=== PATIENT | female | born 1950 | race Caucasian/White ===

== ENCOUNTER 2017-02-16 13:23 | Inpatient (IN) | payer MEDICARE ==
[2017-02-16] MEDS ORDERED: NS 0.9% 1000 ML* 2,000 ML IV ONE (16:23)
[2017-02-16 16:59] LABS: Hematocrit 42 % (35-47); Hemoglobin 14.5 g/dl (12.0-16.0); Mean Corpuscular HGB Conc 35 g/dl (31-36); Mean Corpuscular Hemoglobin 30 pg (27-31); Mean Corpuscular Volume 88 fL (80-97); Mean Platelet Volume 9 um3 (7.4-10.4); Red Blood Count 4.79 10^6/ul (4.0-5.4); Red Cell Distribution Width 13 % (10.5-15)
[2017-02-16 17:04] LABS: Urine Bacteria Absent (Absent); Urine Bilirubin Negative (Negative); Urine Glucose Negative (Negative); Urine Nitrite Negative (Negative)
[2017-02-16 17:16] LABS: Albumin 4.3 g/dL (3.2-5.2); BUN/Creatinine Ratio 14.9 (8-20); C Reactive Protein 91.19 mg/L (< 5.00); Calcium 10.2 mg/dL (8.6-10.3); EGFR African American 113.3 (>60); EGFR Non-African American 88.1 (>60); Globulin 3.4 g/dL (2-4); Potassium 3.6 mmol/L (3.5-5.0); Total Bilirubin 0.7 mg/dL (0.2-1.0); Total Protein 7.7 g/dL (6.4-8.9)
[2017-02-16] MEDS ORDERED: Iohexol 300* (CONTRAST) 10 ML SDV IV ONE (18:25)
--- NOTE | 2017-02-16 18:56 | ED ---
Juanis Yang Thomas, scribed for Marlon Sherwood MD on 02/16/17 at 1612 . Abdominal Pain/Female - HPI Summary HPI Summary: The pt is a 66 y/o F presenting to the ED c/o constant lower abd pain that began suddenly 10 days ago. It is most painful on her LLQ. It has gotten progressively worse. Intermittently, the pain worsens and is described as sharp. The pt rates the pain 8/10. The pain is aggravated by urination and alleviated by heat. 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 Pt additionally c/o decreased appetite secondary to the pain, bloating, chills, and night sweats. Pt denies N/V/D, bloody stool, black tarry stools, dysuria, hematuria, CP, SOB, fever, cough, wheezing, palpitations, back pain, decreased flatus, belching, pedal edema, and dark urine. She takes progesterone cream, osteoprime, and flax seed oil. PMHx: ovarian cysts, UTI, osteoporosis, internal bleeding after natural delivery. PSHx: tubal ligation, hysterectomy, R ovary removal, appendectomy. SHx: former smoking, occasional alcohol use, no illicit drug use. She denies recent travels. She is not on a blood thinner. - History of Current Complaint Chief Complaint: EDAbdPain Stated Complaint: LOWER ABD PAIN Time Seen by Provider: 02/16/17 16:04 Hx Obtained From: Patient Onset/Duration: Sudden Onset, Lasting Days - 10, Still Present, Worse Since - progressively Timing: Constant Pain Intensity: 8 Pain Scale Used: 0-10 Numeric Location: Other - Lower but worse in LLQ Character: Other: - When it intermittently worsenes, it is sharp Aggravating Factor(s): Nothing Alleviating Factor(s): Nothing Associated Signs and Symptoms: Positive: Diaphoresis - night, Decreased Appetite - secondary to the pain, Other: - POS: chills, bloating; NEG: black tarry stool, dysuria, hematuria, SOB, wheezing, palpitations, decreased flatus, belching, pedal edema, dark urine. Negative: Fever, Cough, Chest Pain, Back Pain, Blood in Stool, Nausea, Vomiting, Diarrhea Allergies/Adverse Reactions: Allergies Allergy/AdvReac Type Severity Reaction Status Date / Time No Known Allergies Allergy Verified 02/16/17 13:34 PMH/Surg Hx/FS Hx/Imm Hx Previously Healthy: No Endocrine/Hematology History: Denies: Hx Diabetes, Hx Thyroid Disease Cardiovascular History: Denies: Hx Hypertension, Hx Pacemaker/ICD Respiratory History: Reports: Other Respiratory Problems/Disorders - HX PNEUMONIA Denies: Hx Asthma, Hx Chronic Obstructive Pulmonary Disease (COPD) GI History: Denies: Hx Ulcer History: Reports: Other Problems/Disorders - Hx ovarian cysts Denies: Hx Renal Disease Musculoskeletal History: Reports: Hx Osteoporosis - ? OSTEO, SPONTANIOUS RIB FX' S Sensory History: Denies: Hx Hearing Aid Psychiatric History: Denies: Hx Panic Disorder - Cancer History Hx Chemotherapy: No Hx Radiation Therapy: No - Surgical History Surgery Procedure, Year, and Place: 2012 REPAIR LEFT HAND FRACTURE. 1986 hysterectomy. 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 Negative: Fever Negative: Palpitations, Chest Pain Positive: Other - POS: wheezing. Negative: Shortness Of Breath, Cough Positive: Abdominal Pain - lower, onset 10 days ago, Other - POS: decreased appetite secondary to the pain; NEG: black tarry stool, bloody stool, decreased flatus, belching. Negative: Vomiting, Diarrhea, Nausea Negative: dysuria, hematuria - black tarry stools, bloody stools, other - NEG: dark urine Negative: Edema - pedal, Other - NEG: back pain All Other Systems Reviewed And Are Negative: Yes Physical Exam - Summary Physical Exam Summary: The patient is well-nourished in no acute distress and in no acute pain. The skin is warm and dry and skin color reflects adequate perfusion. HEENT: The head is normocephalic and atraumatic. The pupils are equal and reactive. The conjunctivae are clear and without drainage. Nares are patent and without drainage. Mouth reveals moist mucous membranes and the throat is without erythema and exudate. The external ears are intact. The ear canals are patent and without drainage. The tympanic membranes are intact. Neck is supple with full range of motion and non-tender. There are no carotid bruits. There is no neck vein distension. Respiratory: Chest is non-tender. Lungs are clear to auscultation and breath sounds are symmetrical and equal. Cardiovascular: Heart is regular rate and rhythm. There is no murmur or rub auscultated. There is no peripheral edema and pulses are symmetrical and equal. Abdomen: The abdomen is soft. There is tenderness to her LLQ. There is no CVA tenderness. There are hyperactive bowel sounds heard in all four quadrants and there is no organomegaly palpated. Musculoskeletal: There is no back pain noted. Extremities are non-tender with full range of motion. There is good capillary refill. There is no peripheral edema or calf tenderness elicited. Neurological: Patient is alert and oriented to person, place and time. The patient has symmetrical motor strength in all four extremities. Cranial nerves are grossly intact. Deep tendon reflexes are symmetrical and equal in all four extremities. Psychiatric: The patient has an appropriate affect and does not exhibit any anxiety or depression. Triage Information Reviewed: Yes Vital Signs On Initial Exam: Initial Vitals Temp Pulse Resp BP Pulse Ox 98.2 F 82 16 143/68 100 02/16/17 13:30 02/16/17 13:30 02/16/17 13:30 02/16/17 13:30 02/16/17 13:30 Vital Signs Reviewed: Yes - [place] Coma Scale Coma Scale Total: 15 Diagnostics - Vital Signs Vital Signs Temp Pulse Resp BP Pulse Ox 02/16/17 15:00 82 126/54 100 02/16/17 14:55 98.8 F 84 18 147/71 100 02/16/17 14:54 147/71 02/16/17 13:30 98.2 F 82 16 143/68 100 - Laboratory Lab Results: Lab Results 02/16/17 02/16/17 02/16/17 Range/Units 16:47 16:47 16:47 WBC 8.0 (3.5-10.8) 10^3/ul RBC 4.79 (4.0-5.4) 10^6/ul Hgb 14.5 (12.0-16.0) g/dl Hct 42 (35-47) % MCV 88 (80-97) fL MCH 30 (27-31) pg MCHC 35 (31-36) g/dl RDW 13 (10.5-15) % Plt Count 243 (150-450) 10^3/ul MPV 9 (7.4-10.4) um3 Neut % (Auto) 70.1 (38-83) % Lymph % (Auto) 19.7 L (25-47) % Stanley % (Auto) 7.6 (1-9) % Eos % (Auto) 2.0 (0-6) % Baso % (Auto) 0.6 (0-2) % Absolute Neuts (auto) 5.6 (1.5-7.7) 10^3/ul Absolute Lymphs (auto) 1.6 (1.0-4.8) 10^3/ul Absolute Monos (auto) 0.6 (0-0.8) 10^3/ul Absolute Eos (auto) 0.2 (0-0.6) 10^3/ul Absolute Basos (auto) 0 (0-0.2) 10^3/ul Absolute Nucleated RBC 0 10^3/ul Nucleated RBC % 0 Sodium 137 (133-145) mmol/L Potassium 3.6 (3.5-5.0) mmol/L Chloride 101 (101-111) mmol/L Carbon Dioxide 28 (22-32) mmol/L Anion Gap 8 (2-11) mmol/L BUN 10 (6-24) mg/dL Creatinine 0.67 (0.51-0.95) mg/dL Est GFR ( Amer) 113.3 (>60) Est GFR (Non-Af Amer) 88.1 (>60) BUN/Creatinine Ratio 14.9 (8-20) Glucose 90 (70-100) mg/dL Lactic Acid 0.6 (0.5-2.0) mmol/L Calcium 10.2 (8.6-10.3) mg/dL Total Bilirubin 0.70 (0.2-1.0) mg/dL AST 18 (13-39) U/L ALT 28 (7-52) U/L Alkaline Phosphatase 89 (34-104) U/L C-Reactive Protein 91.19 H (< 5.00) mg/L Total Protein 7.7 (6.4-8.9) g/dL Albumin 4.3 (3.2-5.2) g/dL Globulin 3.4 (2-4) g/dL Albumin/Globulin Ratio 1.3 (1-3) Amylase 51 (29-103) U/L Lipase 28 (11.0-82.0) U/L Urine Color Urine Appearance Urine pH (5-9) Ur Specific [place] (1.010-1.030) Urine Protein (Negative) Urine Ketones (Negative) Urine Blood (Negative) Urine Nitrate (Negative) Urine Bilirubin (Negative) Urine Urobilinogen (Negative) Ur Leukocyte Esterase (Negative) Urine WBC (Auto) (Absent) Urine RBC (Auto) (Absent) Urine Bacteria (Absent) Urine Glucose (Negative) 02/16/17 Range/Units 16:47 WBC (3.5-10.8) 10^3/ul RBC (4.0-5.4) 10^6/ul Hgb (12.0-16.0) g/dl Hct (35-47) % MCV (80-97) fL MCH (27-31) pg MCHC (31-36) g/dl RDW (10.5-15) % Plt Count (150-450) 10^3/ul MPV (7.4-10.4) um3 Neut % (Auto) (38-83) % Lymph % (Auto) (25-47) % Stanley % (Auto) (1-9) % Eos % (Auto) (0-6) % Baso % (Auto) (0-2) % Absolute Neuts (auto) (1.5-7.7) 10^3/ul Absolute Lymphs (auto) (1.0-4.8) 10^3/ul Absolute Monos (auto) (0-0.8) 10^3/ul Absolute Eos (auto) (0-0.6) 10^3/ul Absolute Basos (auto) (0-0.2) 10^3/ul Absolute Nucleated RBC 10^3/ul Nucleated RBC % Sodium (133-145) mmol/L Potassium (3.5-5.0) mmol/L Chloride (101-111) mmol/L Carbon Dioxide (22-32) mmol/L Anion Gap (2-11) mmol/L BUN (6-24) mg/dL Creatinine (0.51-0.95) mg/dL Est GFR ( Amer) (>60) Est GFR (Non-Af Amer) (>60) BUN/Creatinine Ratio (8-20) Glucose (70-100) mg/dL Lactic Acid (0.5-2.0) mmol/L Calcium (8.6-10.3) mg/dL Total Bilirubin (0.2-1.0) mg/dL AST (13-39) U/L ALT (7-52) U/L Alkaline Phosphatase (34-104) U/L C-Reactive Protein (< 5.00) mg/L Total Protein (6.4-8.9) g/dL Albumin (3.2-5.2) g/dL Globulin (2-4) g/dL Albumin/Globulin Ratio (1-3) Amylase (29-103) U/L Lipase (11.0-82.0) U/L Urine Color Yellow Urine Appearance Clear Urine pH 7.0 (5-9) Ur Specific [place] 1.006 L (1.010-1.030) Urine Protein Negative (Negative) Urine Ketones Negative (Negative) Urine Blood Negative (Negative) Urine Nitrate Negative (Negative) Urine Bilirubin Negative (Negative) Urine Urobilinogen Negative (Negative) Ur Leukocyte Esterase 2+ H (Negative) Urine WBC (Auto) 2+(11-20/hpf) H (Absent) Urine RBC (Auto) Trace(0-2/hpf) (Absent) Urine Bacteria Absent (Absent) Urine Glucose Negative (Negative) Result Diagrams: 02/16/17 16:47 02/16/17 16:47 Lab Statement: Any lab studies that have been ordered have been reviewed, and results considered in the medical decision making process. Abdominal Pain Fem Course/Dx - Diagnoses Differential Diagnosis: Positive: Bowel Obstruction, Diverticulitis, Urinary Tract Infection, Other - collitis Provider Diagnoses: (Ruled Out): Chest pain Discharge - Discharge Plan Condition: Fair Disposition: OTHER Discharge Disposition Comment: The patient is signed out from Dr. Sherwood to Dr. Hand. The documentation as recorded by the Juanis hooks Thomas accurately reflects the service I personally performed and the decisions made by Presley aquino Drew, MD.
--- NOTE | 2017-02-16 19:21 | RAD ---
Indication: Left lower quadrant pain. Contrast: Administered 65.0 ml of OMNIPAQUE 300 mg/ml CT of the abdomen and pelvis was performed after oral and IV contrast administration. Coronal and sagittal images were obtained. Lung bases demonstrate no pleural fluid, nodules or masses. Heart size without evidence of pericardial effusion. The liver is normal in size. There is a tiny low density lesion in the anterior segment of the right lobe of liver measuring 5 mm. This is nonspecific and may represent a cyst. No other focal lesions or intrahepatic ductal dilatation is noted. The spleen is normal in size. The pancreas demonstrates no mass or pancreatic duct dilatation. The common duct is not dilated. The gallbladder demonstrates no gallstones, pericholecystic fluid or wall thickening. The common duct is not dilated. No adrenal lesions are noted. The kidneys demonstrate symmetric nephrograms without evidence of lesions. No dilated loops of bowel are noted. The colon is filled with stool. CT of the pelvis demonstrates a long segment of wall thickening of the sigmoid colon with fluid in the wall of the sigmoid colon. This is likely representing diverticulitis. Structures in the sidewall of the pelvis with low-density appear well-defined. This measures approximately 4.1 x 2.0 cm with several low density lesions noted. A similar lesion was identified on a previous exam of 2014 and this likely represents the left ovary. The patient is status post hysterectomy. The urinary bladder is unremarkable. The right ovary is not visualized. IMPRESSION: THERE IS DIVERTICULITIS WITH OVOID FLUID COLLECTION IN THE LEFT LATERAL WALL OF THE SIGMOID COLON LIKELY REPRESENTING A PERIDIVERTICULAR ABSCESS. IN THE LEFT PELVIC SIDEWALL IS A MASS WITH LOW DENSITY AREAS LIKELY REPRESENTING A PROMINENT LEFT OVARY THIS WAS PRESENT ON PRIOR EXAM OF 2014.
[2017-02-16] MEDS ORDERED: fentaNYL* 50 MCG/ML 2 ML VIAL (100 MCG VIAL) IV SLOW PU ONE (19:50)
--- NOTE | 2017-02-16 19:53 | ED ---
Juanis Yang Thomas, scribed for Kyleigh Hand MD on 02/16/17 at 1952 . Progress - Progress Note Progress Note: The patient is a sign out from Dr. Sherwood to Dr. Hand. CT Abd/Pel reveals THERE IS DIVERTICULITIS WITH OVOID FLUID COLLECTION IN THE LEFT LATERAL WALL OF THE SIGMOID COLON LIKELY REPRESENTING A PERIDIVERTICULAR ABSCESS. IN THE LEFT PELVIC SIDEWALL IS A MASS WITH LOW DENSITY AREAS LIKELY REPRESENTING A PROMINENT LEFT OVARY THIS WAS PRESENT ON PRIOR EXAM OF 2014. I made the patient aware of her CT results. She is willing to be admitted to [facility] [place]. I consulted with benjamín Fragoso, who admits the patient at 19:48. Course/Dx - Diagnoses Provider Diagnoses: Diverticulitis of intestine with abscess The documentation as recorded by the Juanis hooks Thomas accurately reflects the service I personally performed and the decisions made by me, Kyleigh Hand MD.
[2017-02-16] MEDS ORDERED: Acetaminophen TAB* 325 MG PO PRN (21:16)
[2017-02-16] MEDS: NS 0.9% 1000 ML* 1,000 ML IV SCH (21:27)
[2017-02-16] MEDS: Ciprofloxacin 400MG IVPREMIX(* 400 MG/200 ML BAG IVPB SCH (23:53)
[2017-02-16] MEDS: Heparin VIAL(*) 5000 UNITS/ML VIAL (FIVE THOUSAND) SUBCUT SCH (23:58)
[2017-02-17] MEDS: metroNIDAZOLE IV 500 MG/100ML* 500 MG/100 ML BAG IVPB SCH ×4 (01:10→17:51)
[2017-02-17] MEDS: NS 0.9% 1000 ML* 1,000 ML IV SCH ×2 (02:12→16:41)
--- NOTE | 2017-02-17 02:40 | HP ---
CC: FREDY Gonzalez, [facility] * HISTORY AND PHYSICAL: DATE OF ADMISSION: 02/16/17 CHIEF COMPLAINT: Abdominal pain. HISTORY OF PRESENT ILLNESS: The patient is a 66-year-old woman who said about a week ago, she started having pain in her lower abdomen both on the right and left side. She actually thought it was the right side that was initially worse. The pain was not constant. In fact, she was able to go through out the day feeling fairly well, but the pain seemed to increase at night. The pain was a very sharp and crampy type of pain. When she had a bowel movement, it also seemed to improve. She tried Tylenol, however, ibuprofen without any help. She denied any fever. She denied any change in her bowel movements. She denied any nausea or vomiting. She did have night sweats. Over the last 24 to 36 hours, the pain seemed to increase and was now all day so she came to the hospital. On examination, she stated that the pain was actually much worse on the left side. A CAT scan did show diverticular abscess. PAST MEDICAL HISTORY: Significant for osteoporosis. ALLERGIES: She has no known drug allergies. CURRENT MEDICATIONS: 1. Progesterone cream twice a day for 20 days out of the month. 2. OsteoPrime daily. 3. Flaxseed oil as directed. FAMILY HISTORY: Mother at 44 of breast cancer. Father in his 70's of an AK. SOCIAL HISTORY: No tobacco, social alcohol, no recreational drug use. 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 She is with children. Her , Jas Kirk, and her daughter, Rosalee Caban, are her healthcare proxies. REVIEW OF SYSTEMS: A 14-point review of systems was completed with the patient. All pertinent positives and negatives are in the history of present illness, otherwise is negative. PHYSICAL EXAMINATION GENERAL: She is a well-nourished, well-developed woman, in no acute distress. VITAL SIGNS: Blood pressure 122/66, pulse oxygenation 97% on room air, heart rate 81 beats per minute, temperature 98.8 degrees. HEENT: Normocephalic, atraumatic. Pupils are equal, round, and reactive to light. Moist mucous membranes. NECK: Supple. No JVD, bruits, palpable thyroid, or lymphadenopathy. CHEST: Clear to auscultation and percussion bilaterally. CARDIOVASCULAR: S1 and S2 appreciated. Regular rate and rhythm. ABDOMEN: Positive bowel sounds in all 4 quadrants. Soft, it is tender in the left lower quadrant. No rebound, no guarding or rigidity. EXTREMITIES: No cyanosis, clubbing, or edema. +2 peripheral pulses bilaterally. NEUROLOGIC: Alert and oriented x3. Moves all extremities. SKIN: No rashes or abnormalities. DIAGNOSTIC STUDIES/LAB DATA: White count 8.0, hemoglobin 14.5, hematocrit 42, platelets 243. Sodium 137, potassium 3.6, chloride 101, CO2 28, BUN 10, creatinine 0.67, glucose 90. Urinalysis: +2 leukocyte esterase, +[address] pelvic [address] was interpreted by Radiology as there is diverticulitis with ovoid fluid collection in the left lateral wall of the sigmoid colon likely representing a periventricular abscess, on left pelvis sidewall is a mass with low density area likely representing a prominent left ovary that was present on prior exam of 2014. ASSESSMENT AND PLAN: 1. Diverticulitis, placed the patient on Cipro 400 IV q.12, Flagyl 500 IV q.6. Clear liquid diet, normal saline at 100 cc an hour, morphine p.r.n. for pain, Zofran p.r.n. for nausea. Tylenol p.r.n. for fever, chills. 2. Osteoporosis. Continue current regimen. 3. FEN. Clear liquid diet, normal saline at 100 cc an hour. 4. DVT prophylaxis. Heparin subcu. 5. The patient is a full code. TIME SPENT: Over 75 minutes were spent on this H and P, more than 45 minutes of which was spent in direct [id number] contact with the patient evaluation, physical exam, counseling, and coordination of care. [id number]/[facility] #: [id number] [facility] CENTERStephy
[2017-02-17] MEDS: Morphine INJ* 2 MG/ML 1 ML SYRINGE IV PRN ×2 (05:02→19:30)
[2017-02-17] MEDS: Heparin VIAL(*) 5000 UNITS/ML VIAL (FIVE THOUSAND) SUBCUT SCH ×3 (06:21→20:58)
[2017-02-17] MEDS: [UNRECOGNIZED DRUG - OTHER] PO SCH ×2 (09:03→20:55)
[2017-02-17] MEDS: Lactobacillus Acidophilu (GG)* 1 CAP CAP PO SCH ×2 (09:18→20:58)
--- NOTE | 2017-02-17 10:49 | PN ---
Subjective Date of Service: 02/17/17 Interval History: HOSPITALIST PROGRESS NOTE Patient seen and examined at bedside. She feels a little better today. Abdominal pain is less intense, tolerating clear liquids well, with no N/V. Last BM last night. Family History: Unchanged from Admission Social History: Unchanged from Admission Past Medical History: Unchanged from Admission Objective Active Medications: Acetaminophen (Tylenol Tab*) 650 mg PO Q4H PRN PRN Reason: FEVER/PAIN Heparin Sodium (Porcine) (Heparin Vial(*)) 5,000 units SUBCUT Q8HR [facility] Last Admin: 02/17/17 06:21 Dose: 5,000 units Ciprofloxacin/Dextrose (Cipro 400 Mg Ivpremix(*)) 400 mg in 200 mls @ 200 mls/ hr IVPB Q12H [facility] Last Admin: 02/16/17 23:53 Dose: 200 mls/hr Sodium Chloride (Ns 0.9% 1000 Ml*) 1,000 mls @ 100 mls/hr IV PER RATE [facility] Last Admin: 02/17/17 02:12 Dose: 100 mls/hr Metronidazole/Sodium Chloride (Flagyl 500 Mg Ivpb*) 500 mg in 100 mls @ 100 mls /hr IVPB Q6H [facility] Last Admin: 02/17/17 06:22 Dose: 100 mls/hr Lactobacillus Rhamnosus (Culturelle*) 1 cap PO BID [facility] Last Admin: 02/17/17 09:18 Dose: 1 cap Morphine Sulfate (Morphine Inj (Syringe)*) 2 mg IV Q2H PRN PRN Reason: PAIN Last Admin: 02/17/17 05:02 Dose: 2 mg Non-Formulary Medication (Osteoprime Ultra) 2 tab PO BID [facility] Last Admin: 02/17/17 09:03 Dose: Not Given Non-Formulary Medication (Progesterone) 4 applic TOPICAL .SEE INSTRUCTIONS [facility] Ondansetron HCl (Zofran Inj*) 4 mg IV Q4H PRN PRN Reason: NAUSEA Vital Signs 02/17/17 02/17/17 02/17/17 05:02 06:02 07:25 Temperature 98.4 F Pulse Rate 70 Respiratory 14 14 16 Rate Blood Pressure 102/42 (mmHg) O2 Sat by Pulse 98 Oximetry Oxygen Devices in Use Now: None Appearance: Pleasant lady lying in bed in NAD. Eyes: No Scleral Icterus Ears/Nose/Mouth/Throat: Mucous Membranes Moist Neck: Trachea Midline Respiratory: Symmetrical Chest Expansion and Respiratory Effort, Clear to Auscultation Cardiovascular: RRR - Normal S1 and S2 Abdominal: - - Soft, mild LLQ tenderness, NG, NR, BS+ and increased Extremities: No Edema Neurological: Alert and Oriented x 3, NL Muscle Strength and Tone Lines/Tubes/Other Access: Clean, Dry and Intact Peripheral IV Nutrition: Taking PO's Result Diagrams: 02/16/17 16:47 02/16/17 16:47 Assess/Plan/Problems-Billing Assessment: Mrs. Kirk is a 66yo F with PMH of osteoporosis, who presented to ED with c/o abdominal pain, found to have diverticulitis. - Patient Problems (1) Diverticulitis Comment: - CT showed sigmoid diverticulitis with peridiverticular abscess. - VS are stable, no leukocytosis. - Continue Cipro/Flagyl. - Advance diet. (2) Left ovarian cyst Comment: - CT showed left ovary measuring 4.1x2cm, no significant change from prior US and MRI. - Will need follow up as outpatient. (3) DVT prophylaxis Comment: - SQ heparin. (4) Full code status Status and Disposition: Inpatient.
[2017-02-17] MEDS: Ciprofloxacin 400MG IVPREMIX(* 400 MG/200 ML BAG IVPB SCH (11:20)
--- NOTE | 2017-02-17 12:55 | PN ---
Progress Note - Progress Note Date of Service: 02/17/17 Note: Surgery Progress: Consult note dictated. Impression: Acute diverticulitis w/ small abscess; Left ovarian cyst P: agree w/ current IV abx (Cipro/Flagyl); Dr. Ernandez will see in a.m. (patient understands the potential for surgical intervention though there are no current indications); she was also advised to followup on the ovarian cyst and to have a screening colonoscopy sometime in the future after her acute episode has resolved.
--- NOTE | 2017-02-17 22:05 | CONS ---
CC: FREDY Gonzalez, [facility] * SURGICAL CONSULTATION NOTE: DATE OF CONSULT: 02/17/17 ATTENDING SURGEON: Dr. Jose C Ernandez. CHIEF COMPLAINT: Abdominal pain; diverticulitis with abscess. HISTORY OF PRESENT ILLNESS: This is a 66-year-old female with osteoporosis and known history of diverticulosis, who began to experience lower abdominal pain about 9 days ago. She describes it as being across the lower abdomen, worse in the morning hours and improving later in the day and worse prior to bowel movement, but then with relief thereafter. She also noted increased discomfort if her bladder was full. She did have a decreased appetite. She denies nausea , vomiting, or fever, though did experience some chills and night sweats. She denied any diarrhea or change in her stools. Pain progressed in recent days such that it was present all day. She did have a similar episode about a year ago, which resolved on its own over a 10-day period without antibiotics. She did have a CT scan in [place] at that time. A left ovarian cyst was noted and she was recommended to have a followup, which she was unable to do. On the current CT scan, the cyst is again present and I recommended that she have [employer] followup. She has never had a screening colonoscopy. PAST MEDICAL HISTORY: Osteoporosis including 2 recent fractures of the right first and third metatarsals. She denies any cardiovascular disease, respiratory problems, diabetes. PAST SURGICAL HISTORY: Include tubal ligation and incidental appendectomy and right oophorectomy and subsequent abdominal hysterectomy for benign disease. CURRENT MEDICATIONS: 1. Progesterone topical cream b.i.d. 2. OsteoPrime (supplement for osteoporosis). 3. Flaxseed oil. DRUG ALLERGIES: None known. FAMILY HISTORY: As per her admission history and physical. SOCIAL HISTORY: As per her admission history and physical. 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 REVIEW OF SYSTEMS: As per her admission history and physical. PHYSICAL EXAM: Height 5 feet 5 inches, weight 109 pounds, temperature 98.6, blood pressure 102/44, pulse 74, respirations 14, room air saturation 99%. General: Well-nourished, petit female, in no acute distress. She appears comfortable lying on the bed. Skin: Warm and dry. No suspicious rashes or lesions. HEENT: Pupils equal and round, reactive. EOMs intact. Oropharynx: Mucous membranes moist. Heart: Regular rate and rhythm. No murmur. Lungs: Clear to auscultation. No rales or wheezes. Breasts: Not examined. Abdomen: Well-healed lower midline incision. Bowel sounds present, though somewhat hypoactive. Abdomen is soft with tenderness in the left lower quadrant, but without guarding or rigidity. There is some minor referred tenderness. There is no palpable mass. The remainder of the abdomen is soft and nontender. She is mildly tympanitic. Genitalia and Rectal: Not done. Extremities: No edema. DIAGNOSTIC STUDIES/LAB DATA: Of note, white blood cell count 8000, hemoglobin 14.5, CRP elevated at 91. Urinalysis shows 2+ leukocyte esterase and 2+ white blood cells. CT scan of the abdomen and pelvis was reviewed and shows inflammation in the sigmoid colon consistent with diverticulitis. There is a fluid collection measuring approximately 1 x 4 cm in the lateral wall of the sigmoid colon likely representing peridiverticular abscess. In addition is the aforementioned left pelvic sidewall cystic mass measuring approximately 4 x 2 cm and noted on previous CT from 2015. IMPRESSION: Acute diverticulitis with small abscess. PLAN: Agree with current IV antibiotics (Cipro and Flagyl) and limited diet. It is anticipated that this will respond to medical therapy. The patient understands the potential need for surgery either acutely and/or in the event that she has recurrent disease. She is recommended to have a screening colonoscopy at some point in the future when her acute episode has resolved. She seems agreeable to this. Dr. Ernandez will be following her over the weekend. FREDY REBOLLEDO [id number]/[facility] #: [id number] ALEJANDRO
[2017-02-18] MEDS: Ciprofloxacin 400MG IVPREMIX(* 400 MG/200 ML BAG IVPB SCH ×3 (00:30→22:29)
[2017-02-18] MEDS: Ondansetron INJ* 2 MG/ML VIAL IV PRN (01:53)
[2017-02-18] MEDS: metroNIDAZOLE IV 500 MG/100ML* 500 MG/100 ML BAG IVPB SCH ×4 (01:53→17:24)
[2017-02-18] MEDS: NS 0.9% 1000 ML* 1,000 ML IV SCH ×3 (05:41→22:29)
[2017-02-18] MEDS: Heparin VIAL(*) 5000 UNITS/ML VIAL (FIVE THOUSAND) SUBCUT SCH ×3 (05:48→22:29)
--- NOTE | 2017-02-18 09:01 | PN ---
Progress Note - Progress Note Date of Service: 02/18/17 Note: Day #2 diverticulitis Afeb, VS OK Voiding well Has diarrhea. Slight increase pain No N/V Exam: Abd soft, tender LLQ, No peritonitis, no palpable mass, few BS. Rec: Continue IV abx until improved clinical picture. Will cont. to follow with you.
[2017-02-18] MEDS: Lactobacillus Acidophilu (GG)* 1 CAP CAP PO SCH ×2 (10:28→19:56)
[2017-02-18] MEDS: [UNRECOGNIZED DRUG - OTHER] PO SCH ×2 (10:34→19:50)
--- NOTE | 2017-02-18 10:35 | PN ---
Subjective Date of Service: 02/18/17 Interval History: HOSPITALIST PROGRESS NOTE Patient seen and examined at bedside. She feels a little better this AM, but has more LLQ pain overnight. Frequent episodes of diarrhea with urgency. Tolerating diet well with no N/V. Family History: Unchanged from Admission Social History: Unchanged from Admission Past Medical History: Unchanged from Admission Objective Active Medications: Acetaminophen (Tylenol Tab*) 650 mg PO Q4H PRN PRN Reason: FEVER/PAIN Heparin Sodium (Porcine) (Heparin Vial(*)) 5,000 units SUBCUT Q8HR [facility] Last Admin: 02/18/17 05:48 Dose: 5,000 units Ciprofloxacin/Dextrose (Cipro 400 Mg Ivpremix(*)) 400 mg in 200 mls @ 200 mls/ hr IVPB Q12H [facility] Last Admin: 02/18/17 10:29 Dose: 200 mls/hr Metronidazole/Sodium Chloride (Flagyl 500 Mg Ivpb*) 500 mg in 100 mls @ 100 mls /hr IVPB Q6H [facility] Last Admin: 02/18/17 05:42 Dose: 100 mls/hr Sodium Chloride (Ns 0.9% 1000 Ml*) 1,000 mls @ 75 mls/hr IV PER RATE [facility] Lactobacillus Rhamnosus (Culturelle*) 1 cap PO BID [facility] Last Admin: 02/18/17 10:28 Dose: 1 cap Morphine Sulfate (Morphine Inj (Syringe)*) 2 mg IV Q2H PRN PRN Reason: PAIN Last Admin: 02/17/17 19:30 Dose: 2 mg Non-Formulary Medication (Osteoprime Ultra) 2 tab PO BID [facility] Last Admin: 02/18/17 10:34 Dose: Not Given Non-Formulary Medication (Progesterone) 4 applic TOPICAL .SEE INSTRUCTIONS [facility] Ondansetron HCl (Zofran Inj*) 4 mg IV Q4H PRN PRN Reason: NAUSEA Last Admin: 02/18/17 01:53 Dose: 4 mg Vital Signs 02/17/17 02/18/17 23:30 04:21 Temperature 98.9 F 98.8 F Pulse Rate 76 73 Respiratory 16 16 Rate Blood Pressure 124/54 111/45 (mmHg) O2 Sat by Pulse 97 97 Oximetry Oxygen Devices in Use Now: None Appearance: Pleasant lady lying in bed in NAD. Eyes: No Scleral Icterus Ears/Nose/Mouth/Throat: Mucous Membranes Moist Neck: Trachea Midline Respiratory: Symmetrical Chest Expansion and Respiratory Effort, Clear to Auscultation Cardiovascular: RRR - Normal S1 and S2 Abdominal: - - Soft, mild distention, LLQ tenderness, NG, NR, BS+, not as hyperactive as yesterday Extremities: No Edema Neurological: Alert and Oriented x 3, NL Muscle Strength and Tone Lines/Tubes/Other Access: Clean, Dry and Intact Peripheral IV Nutrition: Taking PO's Result Diagrams: 02/16/17 16:47 02/16/17 16:47 Assess/Plan/Problems-Billing Assessment: Mrs. Kirk is a 66yo F with PMH of osteoporosis, who presented to ED with c/o abdominal pain, found to have diverticulitis. - Patient Problems (1) Diverticulitis Comment: - CT showed sigmoid diverticulitis with peridiverticular abscess. - VS are stable, no leukocytosis. - Continue Cipro/Flagyl #3. - Tolerating diet. (2) Left ovarian cyst Comment: - CT showed left ovary measuring 4.1x2cm, no significant change from prior US and MRI. - Will need follow up as outpatient. (3) DVT prophylaxis Comment: - SQ heparin. (4) Full code status Status and Disposition: Inpatient.
[2017-02-18] MEDS: Morphine INJ* 2 MG/ML 1 ML SYRINGE IV PRN ×2 (10:37→16:19)
[2017-02-19] MEDS: Ondansetron INJ* 2 MG/ML VIAL IV PRN ×4 (00:07→18:13)
[2017-02-19] MEDS: metroNIDAZOLE IV 500 MG/100ML* 500 MG/100 ML BAG IVPB SCH ×4 (00:07→17:12)
[2017-02-19] MEDS: Heparin VIAL(*) 5000 UNITS/ML VIAL (FIVE THOUSAND) SUBCUT SCH ×3 (05:52→21:57)
[2017-02-19 06:19] LABS: Hematocrit 34 % (35-47); Hemoglobin 11.9 g/dl (12.0-16.0); Mean Corpuscular HGB Conc 35 g/dl (31-36); Mean Corpuscular Hemoglobin 31 pg (27-31); Mean Corpuscular Volume 87 fL (80-97); Mean Platelet Volume 9 um3 (7.4-10.4); Red Blood Count 3.88 10^6/ul (4.0-5.4); Red Cell Distribution Width 13 % (10.5-15); White Blood Count 5.8 10^3/ul (3.5-10.8)
[2017-02-19 06:34] LABS: BUN/Creatinine Ratio 7.7 (8-20); Calcium 8.8 mg/dL (8.6-10.3); EGFR Non-African American 73.9 (>60); Potassium 3.7 mmol/L (3.5-5.0)
[2017-02-19] MEDS: Morphine INJ* 2 MG/ML 1 ML SYRINGE IV PRN (06:34)
[2017-02-19] MEDS: [UNRECOGNIZED DRUG - OTHER] PO SCH ×2 (07:37→21:50)
[2017-02-19] MEDS: Lactobacillus Acidophilu (GG)* 1 CAP CAP PO SCH ×2 (07:42→21:53)
[2017-02-19 11:10] LABS: C Reactive Protein 38.1 mg/L (< 5.00)
[2017-02-19] MEDS: Ciprofloxacin 400MG IVPREMIX(* 400 MG/200 ML BAG IVPB SCH ×2 (11:25→23:13)
--- NOTE | 2017-02-19 12:33 | PN ---
Progress Note - Progress Note Date of Service: 02/19/17 Note: HD#3 Diverticulitis. Afebrile, VS OK Pain a little worse. Diarrhea less. No N/V. Abd: Soft, tender LLQ, No mass, No rebound. About the same as yest to my exam. WBC down, diff improved. D/W Dr Johnson. Will get CT scan due to increased pain, though on other clinical grounds she does not look to be at high risk for needing urgent surgery.
--- NOTE | 2017-02-19 12:43 | PN ---
Subjective Date of Service: 02/19/17 Interval History: HOSPITALIST PROGRESS NOTE Patient seen and examined at bedside. She c/o more LLQ pain. Needed Morphine 3 times. Appetite is poor, but no N/V. One loose BM so far today. Family History: Unchanged from Admission Social History: Unchanged from Admission Past Medical History: Unchanged from Admission Objective Active Medications: Acetaminophen (Tylenol Tab*) 650 mg PO Q4H PRN PRN Reason: FEVER/PAIN Heparin Sodium (Porcine) (Heparin Vial(*)) 5,000 units SUBCUT Q8HR [facility] Last Admin: 02/19/17 05:52 Dose: 5,000 units Ciprofloxacin/Dextrose (Cipro 400 Mg Ivpremix(*)) 400 mg in 200 mls @ 200 mls/ hr IVPB Q12H [facility] Last Admin: 02/19/17 11:25 Dose: 200 mls/hr Metronidazole/Sodium Chloride (Flagyl 500 Mg Ivpb*) 500 mg in 100 mls @ 100 mls /hr IVPB Q6H [facility] Last Admin: 02/19/17 12:32 Dose: 100 mls/hr Sodium Chloride (Ns 0.9% 1000 Ml*) 1,000 mls @ 75 mls/hr IV PER RATE [facility] Last Admin: 02/18/17 22:29 Dose: 75 mls/hr Lactobacillus Rhamnosus (Culturelle*) 1 cap PO BID [facility] Last Admin: 02/19/17 07:42 Dose: 1 cap Morphine Sulfate (Morphine Inj (Syringe)*) 2 mg IV Q2H PRN PRN Reason: PAIN Last Admin: 02/19/17 06:34 Dose: 2 mg Non-Formulary Medication (Osteoprime Ultra) 2 tab PO BID [facility] Last Admin: 02/19/17 07:37 Dose: Not Given (Progesterone 4 (Applic)) 4 applic TOPICAL .SEE INSTRUCTIONS [facility] Ondansetron HCl (Zofran Inj*) 4 mg IV Q4H PRN PRN Reason: NAUSEA Last Admin: 02/19/17 05:59 Dose: 4 mg Vital Signs 02/19/17 02/19/17 02/19/17 07:44 07:45 08:12 Temperature 98.5 F Pulse Rate 60 Respiratory 18 18 16 Rate Blood Pressure 111/52 (mmHg) O2 Sat by Pulse 98 Oximetry Oxygen Devices in Use Now: None Appearance: Pleasant lady lying in bed in NAD. Eyes: No Scleral Icterus Ears/Nose/Mouth/Throat: Mucous Membranes Moist Neck: Trachea Midline Respiratory: Symmetrical Chest Expansion and Respiratory Effort, Clear to Auscultation Cardiovascular: RRR - Normal S1 and S2 Abdominal: - - Soft, LLQ tenderness, NG, NR, BS+ Extremities: No Edema Neurological: Alert and Oriented x 3, NL Muscle Strength and Tone Lines/Tubes/Other Access: Clean, Dry and Intact Peripheral IV Nutrition: Taking PO's Result Diagrams: 02/19/17 06:01 02/19/17 06:01 Assess/Plan/Problems-Billing Assessment: Mrs. Kirk is a 66yo F with PMH of osteoporosis, who presented to ED with c/o abdominal pain, found to have diverticulitis. - Patient Problems (1) Diverticulitis Comment: - CT showed sigmoid diverticulitis with peridiverticular abscess. - VS are stable, no leukocytosis. - Continue Cipro/Flagyl #4. - Tolerating diet. - As she had worsening of her pain will repeat CT abd/pelvis. - D/w surgery. - She has no fever, no leukocytosis, but states this is what happened when she had appendicitis. (2) Left ovarian cyst Comment: - CT showed left ovary measuring 4.1x2cm, no significant change from prior US and MRI. - Will need follow up as outpatient. (3) DVT prophylaxis Comment: - SQ heparin. (4) Full code status Status and Disposition: Inpatient.
[2017-02-19] MEDS ORDERED: Iohexol 300* (CONTRAST) 10 ML SDV IV ONE (14:09)
[2017-02-19] MEDS ORDERED: PROCHLORPERAZINE INJ 5 MG/ML 2 ML VIAL IV PRN (14:31)
--- NOTE | 2017-02-19 14:47 | RAD ---
INDICATION: Diverticulitis and abscess, worsening pain. COMPARISON: Comparison is made with a prior CT of the abdomen and pelvis from February 16, 2017. Correlation is also made with a prior exam from September 11, 2014. TECHNIQUE: A CT scan of the abdomen and pelvis was performed with intravenous and oral contrast following intravenous injection of 65 ml of Omnipaque 300 nonionic contrast. Contiguous axial sections were obtained from the lung bases through the symphysis pubis. Images were reconstructed in the coronal and sagittal planes. FINDINGS: The lung bases are clear. No pleural effusion is present. The liver is normal in size. There is a focal area of decreased attenuation in the medial segment of the left hepatic lobe which likely represents focal fatty infiltration and appears unchanged. No other focal abnormalities are seen. The gallbladder appears distended. No calcified gallstones are seen. The spleen is moderately enlarged and unchanged from the prior study. The pancreas appears normal in size without focal abnormality. The kidneys and adrenal glands are normal in size. No hydronephrosis is seen. There is a 1.3 cm cyst present in the midportion of the left kidney. The aorta is normal in caliber with moderate calcific plaque present. No significant enlarged retroperitoneal lymph nodes are seen. The stomach, small and large bowel appear nondistended. The appendix is not visualized. No inflammatory changes are seen in the right lower quadrant. There is focal thickening of the wall of the mid sigmoid colon with stranding in the surrounding mesenteric fat most consistent with diverticulitis. In addition lateral to this region there is a 4.1 x 2.0 cm multicystic structure. Differential diagnosis would include an abscess or a enlarged ovary. This appears unchanged from the prior study. On the exam from 2014 the left ovary appeared to be located in this position. The cystic structures within the mass measure up to 1.5 cm in size. The patient is status post hysterectomy. No free intraperitoneal air or fluid is seen. There is a [id number] lumbar scoliosis convex toward the left side. No significant focal osseous abnormality is seen. IMPRESSION: 1. FINDINGS MOST CONSISTENT WITH DIVERTICULITIS WHICH APPEARS UNCHANGED SIGNIFICANTLY FROM THE PRIOR STUDY. 2. MULTICYSTIC COLLECTION PRESENT LATERAL TO THE AREA OF DIVERTICULITIS CONSISTENT WITH EITHER AN ENLARGED LEFT OVARY OR AN ABSCESS, UNCHANGED. RECOMMEND FURTHER EVALUATION WITH A PELVIC ULTRASOUND. 3. SPLENOMEGALY, UNCHANGED.
--- NOTE | 2017-02-19 19:17 | RAD ---
INDICATION: Left lower quadrant pain, diverticulitis, ovarian cyst versus abscess. COMPARISON: Comparison is made with a prior CT of the abdomen and pelvis from February 19, 2017 and a prior pelvic ultrasound from April 12, 2016. TECHNIQUE: Multiple real-time transvaginal images of the pelvis were obtained. FINDINGS: The patient is status post hysterectomy and right oophorectomy. The left ovary is slightly enlarged measuring 3.7 x 2.7 x 3.5 cm in size. There are multiple cysts present measuring up to 1.7 x 0.9 cm in size. This appears similar to the prior pelvic ultrasound and appears to correlate with the cystic area located lateral to the sigmoid colon on the CT study obtained earlier today. No free intraperitoneal fluid is seen. IMPRESSION: THE CYSTIC AREA NOTED LATERAL TO THE SIGMOID COLON ON THE PRIOR CT STUDY CORRELATES WITH A SLIGHTLY ENLARGED LEFT OVARY WITH MULTIPLE CYSTS.
[2017-02-19] MEDS: NS 0.9% 1000 ML* 1,000 ML IV SCH (21:15)
[2017-02-20] MEDS: metroNIDAZOLE IV 500 MG/100ML* 500 MG/100 ML BAG IVPB SCH ×3 (00:04→12:08)
[2017-02-20] MEDS: Heparin VIAL(*) 5000 UNITS/ML VIAL (FIVE THOUSAND) SUBCUT SCH ×3 (05:45→21:04)
[2017-02-20] MEDS: [UNRECOGNIZED DRUG - OTHER] PO SCH ×2 (08:10→21:00)
[2017-02-20] MEDS: Lactobacillus Acidophilu (GG)* 1 CAP CAP PO SCH ×2 (08:59→21:18)
--- NOTE | 2017-02-20 09:02 | PN ---
Progress Note - Progress Note Date of Service: 02/20/17 Note: HD#4 Diverticulitis Pain better today, though diarrhea worse. Remains afebrile Abd: soft minimally tender LLQ, no peritonitis or guarding. D/W Dr Johnson--OK to disch on oral abx. Would include oral flagyl. Has history of C Diff. Would consider re-checking. Would be happy to see in office in 1-2 weeks.
[2017-02-20] MEDS: Ciprofloxacin 400MG IVPREMIX(* 400 MG/200 ML BAG IVPB SCH (10:53)
[2017-02-20] MEDS: Ondansetron INJ* 2 MG/ML VIAL IV PRN (10:56)
[2017-02-20] MEDS ORDERED: Zosyn per Pharmacy* NOTE FOLLOW UP SCH (14:00)
--- NOTE | 2017-02-20 14:13 | PN ---
Subjective Date of Service: 02/20/17 Interval History: HOSPITALIST PROGRESS NOTE Patient seen and examined at bedside. Abdominal pain is less intense, but diarrhea persists. Has had 4 BM so far, with urgency and incontinence. Appetite is poor, having more nausea, but no vomiting. Family History: Unchanged from Admission Social History: Unchanged from Admission Past Medical History: Unchanged from Admission Objective Active Medications: Acetaminophen (Tylenol Tab*) 650 mg PO Q4H PRN PRN Reason: FEVER/PAIN Heparin Sodium (Porcine) (Heparin Vial(*)) 5,000 units SUBCUT Q8HR [facility] Last Admin: 02/20/17 12:08 Dose: 5,000 units Sodium Chloride (Ns 0.9% 1000 Ml*) 1,000 mls @ 75 mls/hr IV PER RATE [facility] Last Admin: 02/19/17 21:15 Dose: 75 mls/hr Piperacillin Sod/Tazobactam (Sod 3.375 gm/ Sodium Chloride) 100 mls @ 200 mls/ hr IVPB ONCE ONE Stop: 02/20/17 14:25 Lactobacillus Rhamnosus (Culturelle*) 1 cap PO BID [facility] Last Admin: 02/20/17 08:59 Dose: 1 cap Morphine Sulfate (Morphine Inj (Syringe)*) 2 mg IV Q2H PRN PRN Reason: PAIN Last Admin: 02/19/17 06:34 Dose: 2 mg Non-Formulary Medication (Osteoprime Ultra) 2 tab PO BID [facility] Last Admin: 02/20/17 08:10 Dose: Not Given (Progesterone 4 (Applic)) 4 applic TOPICAL .SEE INSTRUCTIONS [facility] Ondansetron HCl (Zofran Inj*) 4 mg IV Q4H PRN PRN Reason: NAUSEA Last Admin: 02/20/17 10:56 Dose: 4 mg Pharmacy Consult (Zosyn Per Pharmacy*) 1 note FOLLOW UP .ZOSYN PER PHARMACY [facility] Prochlorperazine Edisylate (Compazine Inj*) 5 mg IV Q6H PRN PRN Reason: NAUSEA/VOMITING Last Admin: 02/19/17 14:56 Dose: 5 mg Vital Signs 02/19/17 02/20/17 02/20/17 23:47 03:37 07:24 Temperature 98.5 F 97.9 F 98.6 F Pulse Rate 78 74 78 Respiratory 16 16 16 Rate Blood Pressure 128/50 108/49 118/58 (mmHg) O2 Sat by Pulse 97 98 96 Oximetry Oxygen Devices in Use Now: None Appearance: Pleasant lady lying in bed in NAD. Eyes: No Scleral Icterus Ears/Nose/Mouth/Throat: Mucous Membranes Moist Neck: Trachea Midline Respiratory: Symmetrical Chest Expansion and Respiratory Effort, Clear to Auscultation Cardiovascular: RRR - Normal S1 and S2 Abdominal: - - Soft, mild LLQ tendernes, NG, NR, mild distention, BS+ Extremities: No Edema Neurological: Alert and Oriented x 3, NL Muscle Strength and Tone Lines/Tubes/Other Access: Clean, Dry and Intact Peripheral IV Nutrition: Taking PO's Result Diagrams: 02/19/17 06:01 02/19/17 06:01 Assess/Plan/Problems-Billing Assessment: Mrs. Kirk is a 66yo F with PMH of osteoporosis, who presented to ED with c/o abdominal pain, found to have diverticulitis. - Patient Problems (1) Diverticulitis Comment: - CT showed sigmoid diverticulitis with peridiverticular abscess. - VS are stable, no leukocytosis. - Repeat CT abd/pelvis does not show worsening of her diverticulitis. - She had C. diff in the past, so will check it again now as it could explain her diarrhea. - Suspect her nausea and anorexia is likely secondary to Metronidazole. If C. diff is negative, will d/c Cipro/Flagyl and start Zosyn. (2) Left ovarian cyst Comment: - CT showed left ovary measuring 4.1x2cm, no significant change from prior US and MRI. - Will need follow up as outpatient. (3) DVT prophylaxis Comment: - SQ heparin. (4) Full code status Status and Disposition: Inpatient.
[2017-02-20] MEDS: NS 0.9% 1000 ML* 1,000 ML IV SCH (15:56)
[2017-02-20] MEDS: ZOSYN 3.375 GM Q8H per EXTENDED INFUSION IVPB SCH ×2 (21:04)
[2017-02-21] MEDS: ZOSYN 3.375 GM Q8H per EXTENDED INFUSION IVPB SCH ×2 (04:00)
[2017-02-21] MEDS: Heparin VIAL(*) 5000 UNITS/ML VIAL (FIVE THOUSAND) SUBCUT SCH ×3 (06:11→21:47)
[2017-02-21] MEDS: [UNRECOGNIZED DRUG - OTHER] PO SCH ×2 (07:45→21:43)
[2017-02-21] MEDS: Lactobacillus Acidophilu (GG)* 1 CAP CAP PO SCH ×2 (07:49→21:46)
[2017-02-21] MEDS: Amoxicillin/Clavulanate TAB* 875 MG PO SCH ×2 (11:06→23:49)
--- NOTE | 2017-02-21 12:50 | PN ---
Subjective Date of Service: 02/21/17 Interval History: HOSPITALIST PROGRESS NOTE Patient seen and examined at bedside. Abdominal pain is improved, diarrhea is less frequent. Still has some nausea and appetite is poor, but no vomiting. Family History: Unchanged from Admission Social History: Unchanged from Admission Past Medical History: Unchanged from Admission Objective Active Medications: Acetaminophen (Tylenol Tab*) 650 mg PO Q4H PRN PRN Reason: FEVER/PAIN Amoxicillin/Clavulanate Potassium (Augmentin Tab*) 875 mg PO BID [facility] Last Admin: 02/21/17 11:06 Dose: 875 mg Heparin Sodium (Porcine) (Heparin Vial(*)) 5,000 units SUBCUT Q8HR [facility] Last Admin: 02/21/17 06:11 Dose: 5,000 units Lactobacillus Rhamnosus (Culturelle*) 1 cap PO BID [facility] Last Admin: 02/21/17 07:49 Dose: 1 cap Morphine Sulfate (Morphine Inj (Syringe)*) 2 mg IV Q2H PRN PRN Reason: PAIN Last Admin: 02/19/17 06:34 Dose: 2 mg Non-Formulary Medication (Osteoprime Ultra) 2 tab PO BID [facility] Last Admin: 02/21/17 07:45 Dose: Not Given (Progesterone 4 (Applic)) 4 applic TOPICAL .SEE INSTRUCTIONS [facility] Ondansetron HCl (Zofran Inj*) 4 mg IV Q4H PRN PRN Reason: NAUSEA Last Admin: 02/20/17 10:56 Dose: 4 mg Prochlorperazine Edisylate (Compazine Inj*) 5 mg IV Q6H PRN PRN Reason: NAUSEA/VOMITING Last Admin: 02/19/17 14:56 Dose: 5 mg Vital Signs 02/20/17 02/21/17 02/21/17 23:47 03:46 08:11 Temperature 98.6 F 98.1 F 98.0 F Pulse Rate 74 71 71 Respiratory 16 16 16 Rate Blood Pressure 129/60 119/53 122/62 (mmHg) O2 Sat by Pulse 99 98 95 Oximetry Oxygen Devices in Use Now: None Appearance: Pleasant lady lying in bed in NAD. Eyes: No Scleral Icterus Ears/Nose/Mouth/Throat: Mucous Membranes Moist Neck: Trachea Midline Respiratory: Symmetrical Chest Expansion and Respiratory Effort, Clear to Auscultation Cardiovascular: RRR - Normal S1 and S2 Abdominal: - - Soft, mild LLQ tenderness, BS+ Neurological: Alert and Oriented x 3, NL Muscle Strength and Tone Lines/Tubes/Other Access: Clean, Dry and Intact Peripheral IV Nutrition: Taking PO's Result Diagrams: 02/19/17 06:01 02/19/17 06:01 Assess/Plan/Problems-Billing Assessment: Mrs. Kirk is a 66yo F with PMH of osteoporosis, who presented to ED with c/o abdominal pain, found to have diverticulitis. - Patient Problems (1) Diverticulitis Comment: - CT showed sigmoid diverticulitis with peridiverticular abscess. - VS are stable, no leukocytosis. - Repeat CT abd/pelvis does not show worsening of her diverticulitis. - Suspect diarrhea and nausea was likely associated with Cipro/Flagyl. - She's afraid she'll go home and won't be able to tolerated PO meds - will try Augmentin and see if she can tolerate it. (2) Left ovarian cyst Comment: - CT showed left ovary measuring 4.1x2cm, no significant change from prior US and MRI. - Will need follow up as outpatient. (3) DVT prophylaxis Comment: - SQ heparin. (4) Full code status Status and Disposition: Inpatient. Anticipate d/c in AM if able to tolerate PO meds.
[2017-02-22] MEDS: Heparin VIAL(*) 5000 UNITS/ML VIAL (FIVE THOUSAND) SUBCUT SCH ×2 (05:59→13:50)
[2017-02-22] MEDS: Amoxicillin/Clavulanate TAB* 875 MG PO SCH (10:00)
[2017-02-22] MEDS: [UNRECOGNIZED DRUG - OTHER] PO SCH (10:01)
[2017-02-22 11:13] VITALS: BP 98/40
[2017-02-22] MEDS: Lactobacillus Acidophilu (GG)* 1 CAP CAP PO SCH (11:52)
--- NOTE | 2017-02-23 03:21 | DS ---
CC: FREDY Gonzalez, [facility] * DISCHARGE SUMMARY: DATE OF ADMISSION: 02/16/17 DATE OF DISCHARGE: 02/22/17 PRIMARY CARE PROVIDER: FREDY Gonzalez, [facility]. DISCHARGE DIAGNOSES: 1. Acute diverticulitis with peridiverticular abscess. 2. Antibiotic-induced nausea, vomiting and diarrhea. SECONDARY DIAGNOSES: 1. Osteoporosis. 2. Left ovary cyst. MEDICATIONS: 1. Flaxseed oil 1000 mg p.o. daily. 2. OsteoPrime Ultra 2 tablets p.o. b.i.d. 3. Progesterone topical to apply 20 days on and 10 days off. New medications: 1. Augmentin 875 mg p.o. b.i.d. for 10 more days. 2. Culturelle 100 mg p.o. b.i.d. for 10 more days. HOSPITAL COURSE: Ms. Kirk is a 66 years old lady with a past medical history as stated above that presented to the emergency room with complaints of left lower quadrant abdominal pain. For more details about her presentation, I refer you to her history and physical. In the emergency room, she was found to have a normal white cell count, but elevated CRP at 91. The CT of the abdomen and pelvis revealed diverticulitis with an ovoid fluid collection in the left lateral of the sigmoid colon likely representing a peridiverticular abscess. In the left pelvic sidewall, there is a mass with low density areas likely representing a prominent left ovary and this was present on her prior exam from 2014. The patient was admitted to the medical floor and started empirically on ciprofloxacin and Flagyl. Initially, the patient had good appetite, but she developed diarrhea, nausea, and anorexia. Her left lower quadrant pain persisted and the patient was being followed by the general surgery service so the plan was to repeat her CAT scan as she was not showing significant improvement. CT of the abdomen and pelvis was done on 02/19/17 showed findings most consistent with diverticulitis, which appears unchanged from the prior study. At that point, the impression was that may be her nausea, vomiting and diarrhea could be associated with antibiotics she was receiving. She was switched from Cipro-Flagyl to Zosyn with significant improvement of her nausea, vomiting and diarrhea. She was able to tolerate an oral diet and had resolution of her left lower quadrant pain. The impression is that this is her second episode of diverticulitis. She had a similar episode in 2016 that resolved by itself and this was likely her first episode. The patient is medically stable for discharge today, but she needs to follow up with her primary care provider and with Dr. Ernandez as outpatient. She will need a colonoscopy after this episode has resolved. Regarding her ovarian cyst, she had a transvaginal ultrasound that showed that the cystic area noted lateral to the sigmoid colon on her CT study correlates with a slightly enlarged left ovary with multiple cysts. This appears to be unchanged from her prior studies, but the patient will benefit of a gynecological evaluation as an outpatient. She is medically stable for discharge today to follow up with her primary care provider. PHYSICAL EXAMINATION: Vital Signs: Temperature 98.2, heart rate is 74, respiratory rate is 16, oxygen saturation is 96% on room air, and blood pressure is 98/40. General: The patient is a pleasant elderly lady, sitting up in bed, in no acute distress. CVS: Normal S1 and S2. Regular rate and rhythm. Chest: Breath sounds present bilaterally with no added sounds. Abdomen: Soft with minimal left lower quadrant tenderness. No guarding or rebound. Bowel sounds present. Extremities: No edema. Neuro: She is alert and oriented x3, able to move all 4 extremities. DIET: Low fiber diet for 2 weeks. ACTIVITY: As tolerated. DISPOSITION: To home. STATUS WHILE IN THE HOSPITAL: Inpatient. Please keep in mind this is a summarized version of this patient's hospital stay. If you need more information , please feel free to call me at [phone] or please obtain the full medical records. TIME SPENT: Approximately 45 minutes were spent to complete this discharge. [id number] #: [id number] [facility]
== END 2017-02-22 13:30 | disposition home or self-care (01) | DRG 392 ==
LOC: ED 13:23 → MED 21:17
PROVIDERS: ADMIT Internal Medicine; ATTEND Internal Medicine
DX: K57.20 Diverticulitis of large intestine with perforation and abscess without bleeding (principal); K52.1 Toxic gastroenteritis and colitis; R11.2 Nausea with vomiting, unspecified; T36.8X5A Adverse effect of other systemic antibiotics, initial encounter; T37.3X5A Adverse effect of other antiprotozoal drugs, initial encounter; Y92.230 Patient room in hospital as the place of occurrence of the external cause; X58.XXXA Exposure to other specified factors, initial encounter; M81.0 Age-related osteoporosis without current pathological fracture; N83.202 Unspecified ovarian cyst, left side; Z79.890 Hormone replacement therapy; Z79.899 Other long term (current) drug therapy; Z80.3 Family history of malignant neoplasm of breast; Z82.49 Family history of ischemic heart disease and other diseases of the circulatory system
CPT/HCPCS: 36415; 74177; 76830; 80048; 80053; 81003; 81015; 82150; 83605; 83690; 85025; 86140; 87086; 87493; A9270-GY; J0744; J0780; J1644; J2270; J2405; J2543; J3010; Q9967